=== PATIENT | male | born 1950 | race Hispanic/Latino ===

== ENCOUNTER 2025-02-16 06:02 | Emergency (ER) | payer OTHER, MEDICARE ==
[~2025-02-16] VITALS: Ht 160 cm; Wt 82.1 kg
--- NOTE | 2025-02-16 06:12 | NUR ---
SEPSIS ALERT CALLED OVERHEAD; PT WITH TEMP OF 103.4 AND PULSE OF 106
[2025-02-16 06:41] LABS: RAPID GROUP A STREP negative (NEGATIVE)
[2025-02-16 06:45] LABS: SARS-CoV-2, RNA, NAAT NEGATIVE SARS CoV-2 (NEGATIVE)
[2025-02-16 06:51] LABS: INFLUENZA TYPE A Negative For Type A (NEGATIVE); INFLUENZA TYPE B Negative For Type B (NEGATIVE)
--- NOTE | 2025-02-16 06:53 | ERN ---
General Chief Complaint: Cough Stated Complaint: C/O COUGH W/PHLEGM, FEVER X 4 DAYS Time Seen by MD: 06:35 Source: patient History of Present Illness Initial Comments Patient comes in with a productive cough and fever for four days. He has been unable to sleep or eat. Timing/Duration: 24 hours Severity: moderate Allergies: Coded Allergies: No Known Drug Allergies (Unverified Allergy, Unknown, 02/16/25) Past Medical History Past Medical History: Hypertension Past Surgical History: None Constitutional: (+) chills, (+) fever EENTM: (-) eye pain, (-) blurred vision, (-) tearing, (-) double vision, (-) ear pain, (-) ear discharge, (-) nose pain, (-) nose congestion, (-) throat pain, (-) Throat swelling, (-) mouth pain, (-) tooth pain, (-) mouth swelling, (-) other documentation Respiratory: (+) cough, (+) wheezing Cardiovascular: (-) chest pain, (-) edema, (-) palpitations, (-) syncope, (-) dyspnea on exertion, (-) other documentation Gastrointestinal/Abdominal: (+) abdominal pain Physical Exam General Appearance: (+) mild distress Orientation: (+) alert Head/Face Trauma: No Eye: bilateral eye normal inspection, bilateral eye PERRL, bilateral eye EOMI Ear, Nose, Throat: (+) hearing grossly normal, (+) normal ENT inspection, (+) moist mucous membraine Neck: (+) normal inspection, (+) supple, (+) full range of motion Respiratory: (+) chest non-tender, (+) lungs clear, (+) decreased breath sounds Heart: (+) regular, (+) no gallop Vascular: (+) no edema, (+) normal peripheral pulse Gastrointestinal: (+) soft, (+) non-tender, (+) distended Results Laboratory and Microbiology Lab and Micro Result Laboratory Tests Test 02/16/25 06:12 02/16/25 06:48 02/16/25 10:53 02/16/25 11:21 Influenza Type A Antigen Negative For Type A Influenza Type B Antigen Negative For Type B SARS-CoV-2, RNA, NAAT NEGATIVE SARS CoV-2 Group A Streptococcus Rapid negative (NEGATIVE) White Blood Count 13.3 K/uL (4.8-10.8) H Red Blood Count 3.94 MIL/uL (4.50-6.20) L Hemoglobin 12.8 g/dL (14.0-18.0) L Hematocrit 38.3 % (42-54) L Mean Corpuscular Volume 97.2 fL (79-99) Mean Corpuscular Hemoglobin 32.5 pg (27.0-33.0) Mean Corpuscular Hemoglobin Concent 33.4 g/dL (32.0-36.0) Red Cell Distribution Width 12.6 % (11.0-15.5) Platelet Count 189 K/uL (130-400) Mean Platelet Volume 10.6 fL (7.5-10.5) H Immature Granulocyte % (Auto) 0.3 % (0-1) Neutrophils (%) (Auto) 91.2 % (40.0-77.0) H Lymphocytes (%) (Auto) 4.5 % (21.0-51.0) L Monocytes (%) (Auto) 3.1 % (3.0-13.0) Eosinophils (%) (Auto) 0.7 % (0.0-8.0) Basophils (%) (Auto) 0.2 % (0.0-5.0) Neutrophils # (Auto) 12.2 K/uL (1.8-7.7) H Lymphocytes # (Auto) 0.6 K/uL (1.0-4.8) L Monocytes # (Auto) 0.4 K/uL (0.1-1.0) Eosinophils # (Auto) 0.09 K/uL (0.00-0.70) Basophils # (Auto) 0.03 K/uL (0.00-0.20) Absolute Immature Granulocyte (auto 0.04 K/uL (0-1) Nucleated Red Blood Cells 0.0 % (0.0-0.19) White Cell Morphology Comment See comments Sodium Level 138 mmol/L (136-145) Potassium Level 4.3 mmol/L (3.5-5.1) Chloride Level 103 mmol/L (101-111) Carbon Dioxide Level 27 mmol/L (21-32) Blood Urea Nitrogen 16 mg/dL (7-18) Creatinine 1.2 mg/dL (0.5-1.3) Glomerular Filtration Rate Calc 62 mL/min (>90) Random Glucose 151 mg/dL (70-105) H Lactic Acid Level 2.5 mmol/L (0.8-2.5) 1.9 mmol/L (0.8-2.5) Total Calcium 8.2 mg/dL (8.5-10.1) L Total Creatine Kinase 136 U/L (21-232) Troponin I High Sensitivity 5 ng/L (4-75) Urine Color LIGHT-YELLOW (YELLOW) Urine Appearance CLEAR (CLEAR) Urine pH 7.0 (5.0-8.0) Urine Specific [place] 1.015 (1.001-1.031) Urine Protein NEGATIVE mg/dL (NEGATIVE) Urine Glucose (UA) NEGATIVE mg/dL (NEGATIVE) Urine Ketones NEGATIVE mg/dL (NEGATIVE) Urine Occult Blood +- (TRACE) (NEGATIVE) H Urine Nitrate NEGATIVE (NEGATIVE) Urine Bilirubin NEGATIVE mg/dL (NEGATIVE) Urine Urobilinogen 2.0 mg/dL (0.2-1.0) H Urine Leukocyte Esterase NEGATIVE [place]/uL Urine RBC 6-10 /HPF (0-1) H Urine WBC 0-1 /HPF (0-1) Urine Squamous Epithelial Cells RARE /HPF (0-2) Urine Bacteria None /HPF (None Seen) Labs Reviewed?: Yes EKG/XRAY/US/CT/MRI X-RAY Comment [address] [address] IMAGING REPORT Signed PATIENT: KENYA WILLAMS MR#: [id number] : 1950 SEX: M AGE: 75 LOCATION: [facility] ORDER 6 STATUS: REG REPORT#: [id number] SERVICE REASON: cough ORDERING PHYSICIAN: LOWELL COLEMAN MD PROCEDURE: CXR1VW - CHEST 1VW Exam Type: CHEST 1VW Clinical Information: cough Comparison: None Findings: The lungs are clear of infiltrates. The heart is enlarged. Bony and soft tissue structures of the chest wall are unremarkable. IMPRESSION: Cardiomegaly. Clear lungs. DICTATED BY: THOMAS ANDREWS MD DATE: 02/16/25 09 ELECTRONICALLY SIGNED BY: THOMAS ANDREWS MD DATE: 02/16/25910 [facility] MDM: DIFFERENTIAL DIAGNOSIS: URI, FLU, COVID, SINUSITIS, RATIONALE: TESTS CONSIDERED AND ORDERED SECONDARY TO SHARED DECISION MAKING INCLUDE: PREVIOUS OUTSIDE RECORDS REVIEWED: OLD ER VISITS. RISK OF COMPLICATION AND/OR MORBIDITY OR MORTALITY OF PATIENT MANAGEMENT: NONE MEDICATIONS-PER MEDICATION RECONCILIATION PATIENT IS A 75-YEAR-OLD MALE COMING IN TO BE EVALUATED FOR URI SYMPTOMS. ON PHYSICAL EXAM NASAL TURBINATE SWELLING OROPHARYNGEAL ERYTHEMA LUNGS ARE CLEAR TO AUSCULTATION LABS WITHIN NORMAL LIMITS. PATIENT WILL BE DISCHARGED IN STABLE CONDITION WITH A DIAGNOSIS OF SINUSITIS. ANTIBIOTICS WILL BE PROVIDED. PATIENT DID RECEIVE ROCEPHIN 1 G WHILE IN ER AND IV FLUIDS WELL ANTIPYRETICS HE STATES HE FEELS MUCH BETTER. HE WILL BE DISCHARGED IN STABLE CONDITION ED Course Orders Procedure Category Date Status Time Iv Insertion CPOE 02/16/25 Transmitted 06:18 Pulse Ox(Continuous) RT 02/16/25 Transmitted 06:18 Vital Signs Per CPOE 02/16/25 Transmitted Routine 06:18 12 Lead Ekg Tracing- EKG 02/16/25 Complete Technical 06:18 Cbc With Differential LAB 02/16/25 Complete 06:18 Blood Cult ABHINAV 02/16/25 In Process 06:18 Urinalysis Profile LAB 02/16/25 Complete 06:18 Culture Urine ABHINAV 02/16/25 In Process 06:18 Creatine Kinase, Total LAB 02/16/25 Complete 06:18 Troponin I High LAB 02/16/25 Complete Sensitivity 06:18 Lactic Acid LAB 02/16/25 Complete 06:18 Basic Metabolic Panel LAB 02/16/25 Complete 06:18 Covid Rna Naat LAB 02/16/25 Complete 06:22 Influenza Type A & B, LAB 02/16/25 Complete Rapid 06:22 Rapid (Group A Strep) LAB 02/16/25 Complete 06:22 Chest 1vw RAD 02/16/25 Resulted 06:56 Lactated Ringers PHA 02/16/25 Complete 1000ml (Lactated 06:56 Lactated Ringers PHA 02/16/25 In Process 1000ml (Lactated 07:00 Acetaminophen 500mg PHA 02/16/25 Complete Tab (Tylenol 500mg T 07:30 Acetaminophen 500mg PHA 02/16/25 Complete Tab (Tylenol 500mg T 07:30 Ceftriaxone 1g Vial PHA 02/16/25 Complete (Rocephine 1g Inj) 09:00 Lactic Acid (Removed) LAB 02/16/25 Complete 10:10 Current Medications Medications (Trade) Dose Ordered Sig/Fernando Route PRN Reason Start Time Stop Time Status Last Admin Dose Admin Acetaminophen (TYLenol 500MG TAB) 1,000 mg ONCE ONCE PO 02/16/25 07:30 02/16/25 07:23 DC Acetaminophen (TYLenol 500MG TAB) 1,000 mg ONCE ONCE PO 02/16/25 07:30 02/16/25 07:31 DC 02/16/25 07:29 Ceftriaxone Sodium (ROCEphine 1G INJ) 1 gm ONCE ONCE IVPB 02/16/25 09:00 02/16/25 09:01 DC 02/16/25 08:57 Lactated Ringer's 1,000 ml @ 100 mls/hr Q10H IV 02/16/25 07:00 03/18/25 06:59 02/16/25 08:25 Lactated Ringer's (Lactated Ringers 1000ml) 1,000 ml BOLUS STAT IV 02/16/25 06:56 02/16/25 06:59 DC 02/16/25 07:12 Vital Signs Date Time Temp Pulse Resp B/P (MAP) Pulse Ox O2 Delivery O2 Flow Rate FiO2 02/16/25 09:25 99.9 94 18 131/51 97 Room Air* 0 21 02/16/25 07:29 103.3 02/16/25 07:16 103.3 94 18 130/59 98 Room Air* 0 21 02/16/25 06:05 103.5 108 20 151/68 95 Room Air DX & DISP Disposition: Discharge Departure Impression: Primary Impression: Sinusitis Condition: Stable Scripts Loratadine (Loratadine) 10 Mg Tablet 1 TAB PO DAILY for allergy symptoms for 30 Days, #30 TAB 0 Refills Prov: SULEIMAN GOLDEN MD 02/16/25 Fluticasone Propionate (Flonase Nasal [place]) 50 Mcg/Actuation [place] 2 SPRAY NS DAILY, #16 GM 0 Refills Prov: SULEIMAN GOLDEN MD 02/16/25 Amoxicillin/Potassium Clav (Amox Tr-K Clv 875-125 mg Tab) 875 Mg-125 Mg Tablet 1 TAB PO BID for 10 Days, #20 TAB 0 Refills Prov: SULEIMAN GOLDEN MD 02/16/25 Additional Instructions: FOLLOW-UP WITH PRIMARY CARE PROVIDER IN 1 TO 2 DAYS. TAKE MEDICATIONS DIRECTED HERE IN THE EMERGENCY ROOM. OKAY TO CONTINUE HOME MEDICATIONS UNLESS OTHERWISE DISCUSSED DURING YOUR VISIT IN THE EMERGENCY ROOM TODAY. RETURN TO YOUR NEAREST EMERGENCY ROOM IF SYMPTOMS WORSEN OR IF THERE IS NO IMPROVEMENT. CALL 911 IF YOU NEED IMMEDIATE ASSISTANCE. TAKE TYLENOL [id number] NEEDED AND IF NO CONTRAINDICATIONS ARE PRESENT. INCREASE ORAL HYDRATION. A WOUND CULTURE OR URINE CULTURE WAS ORDERED HERE IN THE EMERGENCY ROOM DEPARTMENT PLEASE FOLLOW-UP WITH PRIMARY CARE PROVIDER AND ADVISE THEM TO GET REPEAT PORTS FROM OUR FACILITY. IF YOU HAD ANY GAGAN WRAP/SPLINTS THAT WERE APPLIED HERE, PLEASE DO NOT REMOVE THEM UNTIL YOU SEE YOUR PRIMARY CARE OR SPECIALTY. REFERRALS: Referrals: TEJA MCKAY MD (PCP) Time of Disposition: 11:58 LOWELL COLEMAN MD February 16, 2025 06:53 SULEIMAN GOLDEN MD February 16, 2025 11:15
[2025-02-16 06:57] LABS: BASOPHILS # (AUTO) 0.03 K/uL (0.00-0.20); BASOPHILS % (AUTO) 0.2 % (0.0-5.0); EOSINOPHILS # (AUTO) 0.09 K/uL (0.00-0.70); EOSINOPHILS % (AUTO) 0.7 % (0.0-8.0); HEMATOCRIT 38.3 % (42-54); IMMATURE GRANULOCYTE ABSOLUTE 0.04 K/uL (0-1); LYMPHOCYTES # (AUTO) 0.6 K/uL (1.0-4.8); LYMPHOCYTES % (AUTO) 4.5 % (21.0-51.0); MEAN CORPUSCULAR HEMOGLOBIN 32.5 pg (27.0-33.0); MEAN CORPUSCULAR HGB CONC 33.4 g/dL (32.0-36.0); MEAN CORPUSCULAR VOLUME 97.2 fL (79-99); MONOCYTES # (AUTO) 0.4 K/uL (0.1-1.0); MONOCYTES % (AUTO) 3.1 % (3.0-13.0); NEUTROPHILS # (AUTO) 12.2 K/uL (1.8-7.7); NEUTROPHILS % (AUTO) 91.2 % (40.0-77.0); PLATELET COUNT (AUTO) 189 K/uL (130-400); RED BLOOD CELL COUNT(AUTO) 3.94 MIL/uL (4.50-6.20); RED CELL DISTRIBUTION WIDTH 12.6 % (11.0-15.5); WHITE BLOOD COUNT (AUTO) 13.3 K/uL (4.8-10.8)
[2025-02-16] MEDS: LACTATED RINGERS 1000ML IV STA (07:12)
--- NOTE | 2025-02-16 07:12 | NUR ---
PATIENT REPORTS HAVING COUGH FOR DAYS. TODAY WOKE UP WITH FEVER AND FEELING WEAK. DENIES SOB OR CHEST PAIN
[2025-02-16 07:29] VITALS: TEMP 103.2
[2025-02-16] MEDS: acetaMINOPHEN 500 MG TABLET PO ONE (07:29)
[2025-02-16 07:30] LABS: CREATININE 1.2 mg/dL (0.5-1.3); POTASSIUM 4.3 mmol/L (3.5-5.1)
[2025-02-16] MEDS ORDERED: acetaMINOPHEN 500 MG TABLET PO ONE (07:30)
[2025-02-16] MEDS: LACTATED RINGERS 1000ML 1,000 ML IV SCH (08:25)
[2025-02-16] MEDS: cefTRIAXone 1G VIAL IVPB ONE (08:57)
--- NOTE | 2025-02-16 09:11 | HMCIMG ---
Exam Type: CHEST 1VW Clinical Information: cough Comparison: None Findings: The lungs are clear of infiltrates. The heart is enlarged. Bony and soft tissue structures of the chest wall are unremarkable. IMPRESSION: Cardiomegaly. Clear lungs.
--- NOTE | 2025-02-16 11:06 | EKG ---
[facility] Test Date: 2025-02-16 Test Time: 06:30:43 Pat Name: KENYA WILLAMS Department: ED Room: Gender: M [employer]: [id number] : 1950 Requested By: LOWELL COLEMAN Order Number: [id number] Reading MD: Darrel Reyez Measurements Intervals [place] Rate: 95 P: 42 MN: 152 QRS: -2 QRSD: 79 T: 28 QT: 319 QTc: 400 Interpretive Statements Sinus rhythm No previous ECG available for comparison Electronically Signed On 02-16-2025 21:26:54 CDT by Darrel Reyez Please click the below link to view image of tracing.
[2025-02-16 11:42] LABS: APPEARANCE,URINE CLEAR (CLEAR); BILIRUBIN,URINE NEGATIVE (NEGATIVE); COLOR,URINE LIGHT-YELLOW (YELLOW); GLUCOSE, URINE (UA) NEGATIVE (NEGATIVE); KETONES,URINE NEGATIVE (NEGATIVE); LEUKOCYTE ESTERASE ,URINE NEGATIVE Leu/uL (NEGATIVE); NITRATE,URINE NEGATIVE (NEGATIVE); PROTEIN,URINE NEGATIVE (NEGATIVE)
[2025-02-16 11:43] LABS: ADD UA MICROSCOPIC YES
[2025-02-16 11:44] LABS: MUCUS,URINE RARE LPF (None Seen); SQUAMOUS EPITHELIAL CELL,UR RARE /HPF (0-2); WBC,URINE 0-1 /HPF (0-1)
[2025-02-16] MEDS ORDERED: AMOX1TAB16 PO (11:59)
[2025-02-16] MEDS ORDERED: FLUT16H NS (11:59)
[2025-02-16] MEDS ORDERED: LORA10TA7 PO (11:59)
[2025-02-16 12:21] VITALS: BP 118/59; PULSE 86; RESP 18; TEMP 98.9; O2SAT 97
== END 2025-02-16 12:27 | disposition home or self-care (01) ==
LOC: EDSEX 06:02 → EDH 06:02
DX: J32.9 Chronic sinusitis, unspecified (principal); Z20.822 Contact with and (suspected) exposure to COVID-19
CPT/HCPCS: 99285; 96365; 71045; 87635; 82550; 84484; 80048; 85025; 87040 ×2; 87086; 87880; 87804 ×2; 83605 ×2; 81001; 36415; 93005; J7120 ×2; J0696